=== PATIENT | male | born 1980 | race African-American/Black ===

== ENCOUNTER 2020-06-29 17:08 | Emergency (ER) | payer OTHER, SELFPAY ==
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
[2020-06-29 17:28] VITALS: BP 131/68; PULSE 84; RESP 16; TEMP 36.4; O2SAT 100
[2020-06-29] MEDS: KETOROLAC (*BKC) 60 MG/2 ML VIAL IM (18:51)
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
[2020-06-29 20:16] VITALS: BP 118/59; PULSE 69; RESP 16; O2SAT 98
== END 2020-06-29 20:17 | disposition home or self-care (01) ==
PROVIDERS: Emergency Provider Emergency Medicine; PCP Emergency Medicine
DX: S16.1XXA Strain of muscle, fascia and tendon at neck level, initial encounter (principal); V49.40XA Driver injured in collision with unspecified motor vehicles in traffic accident, initial encounter
CPT/HCPCS: 72125; 72128; 96372; 99284; J1885

== ENCOUNTER 2020-09-13 18:25 | Emergency (ER) | payer OTHER, SELFPAY ==
--- NOTE | 2020-09-13 18:28 | ED.GENADULT ---
HPI - General Adult General Chief complaint: Unspecified Stated complaint: Hemorrhoids Time Seen by Provider: 09/13/20 18:44 Source: patient and RN notes reviewed Mode of arrival: ambulatory Limitations: no limitations History of Present Illness HPI narrative: 40-year-old male presents with concern for rectal pain. Reports 6 days ago he ate a hot pepper and later had rectal pain. Reports rectal pain with bowel movements and in between bowel movements. Denies any palpable hemorrhoids, bleeding. Denies constipation, straining. Denies any issue of rectal problems, hemorrhoids in the past. Denies fever, constipation, diarrhea, nausea, vomiting, heartburn, changes in weight. MD complaint: Rectal pain Related Data Allergies Allergy/AdvReac Type Severity Reaction Status Date / Time amoxicillin Allergy Mild Itching Verified 08/08/18 00:19 Review of Systems Review of Systems: Narrative: CONSTITUTIONAL: Denies malaise, chills, sweats, or fever. CARDIOVASCULAR: Denies chest pain, palpitations RESPIRATORY: Denies cough or dyspnea. GASTROINTESTINAL: Denies abdominal pain, nausea, vomiting, diarrhea, bloody, or mucous stools. Reports rectal pain GENITOURINARY: Denies dysuria or hematuria. SKIN: Denies hemorrhoids MUSCULOSKELETAL: Denies back pain or myalgia. All systems reviewed & are unremarkable except as noted in HPI and below PMFSH Past Medical History Medical History (Updated 09/13/20 @ 18:51 by Sandi Tang NP) No active medical problems Social History Social History (Updated 06/29/20 @ 20:04 by Reyna Johnson PA-C) Substance use: current Substance use type: marijuana Comments At time of signature, agree with nursing past medical, surgical, social and family history. There is no relevant family history pertinent to the presenting complaint Exam Narrative: Exam Narrative: GENERAL: Well-appearing, well-nourished, and in no acute distress. HEAD: Normocephalic EYES: PERRLA, conjunctivae clear ENT: Mucous membranes moist. NECK: Supple. CHEST: No respiratory distress. Speaks in full sentences. HEART: Regular rate and rhythm SKIN: Warm, dry, no rash. NEURO: Alert and oriented x3. PSYCH: Normal mood and affect GI: Rectal Exam: visual inspection normal and normal sphincter tone Other: No palpable hemorrhoids, pain with digital exam Course Course Emergency Course: Patient is aware of diagnosis, understands and agrees to treatment plan. Anticipatory guidance given. Patient agrees to follow-up as directed and is aware of reasons to seek care at the emergency department. Portions of this record may have been created with voice recognition software Vital Signs Vital signs: Vital Signs Temperature 97.3 F L 09/13/20 18:35 Pulse Rate 80 09/13/20 18:35 Respiratory Rate 16 09/13/20 18:35 Blood Pressure 147/95 H 09/13/20 18:35 Pulse Oximetry 100 09/13/20 18:35 Temperature 97.3 F L 09/13/20 18:35 Pulse Rate 80 09/13/20 18:35 Respiratory Rate 16 09/13/20 18:35 Blood Pressure 147/95 H 09/13/20 18:35 Pulse Oximetry 100 09/13/20 18:35 Reviewed. Pt has been instructed to follow up with his primary care provider within the next week regarding his elevated blood pressure today. Medical Decision Making MDM Narrative Medical decision making narrative: Exam findings show no acute concerns or changes; patient is non-toxic appearing and is in no distress. Patient is appropriate for outpatient treatment and follow-up. Vital Signs Vital Signs: Vital Signs Temperature 97.3 F L 09/13/20 18:35 Pulse Rate 80 09/13/20 18:35 Respiratory Rate 16 09/13/20 18:35 Blood Pressure 147/95 H 09/13/20 18:35 Pulse Oximetry 100 09/13/20 18:35 Temperature 97.3 F L 09/13/20 18:35 Pulse Rate 80 09/13/20 18:35 Respiratory Rate 16 09/13/20 18:35 Blood Pressure 147/95 H 09/13/20 18:35 Pulse Oximetry 100 09/13/20 18:35 Critical Care Time Critical Care Time Critical Care
[2020-09-13 18:35] VITALS: BP 147/95; PULSE 80; RESP 16; TEMP 36.3; O2SAT 100
--- NOTE | 2020-09-13 18:52 | PC.NURSE ---
roofing tile sorter did manual rectal exam with rn at bedside.
== END 2020-09-13 18:58 | disposition home or self-care (01) ==
PROVIDERS: Emergency Provider Nurse Practitioner; PCP Emergency Medicine
DX: K62.89 Other specified diseases of anus and rectum (principal)
CPT/HCPCS: 99213; G0463

== ENCOUNTER 2020-09-16 11:33 | Emergency (ER) | payer OTHER, SELFPAY ==
--- NOTE | ~2020-09-16 | CT_ITS ---
EXAMINATION: CT abdomen pelvis w con DATE: 09/16/2020 14:09 INDICATION: Rectal pain. Constipation. TECHNIQUE: Computed tomography (CT) of the abdomen and pelvis was performed with 100 mL Omnipaque 350 intravenous contrast. Automated exposure control and iterative reconstruction technique were employe d. The dose-length product was 457.26 mGy-cm. COMPARISON: Chest CT 07/06/2017 FINDINGS: The visualized portions of the lung bases demonstrate multiple scattered pulmonary nodules measuring up to 9 mm in left lower lobe. Most of the nodules are improved from 08/06/2017. There is mi ld atelectasis bilaterally. No pleural effusion. The heart size is normal. No pericardial effusion. T here are 2 cysts in the liver measuring up to 5 mm. The gallbladder, pancreas, adrenal glands, and ki dneys are normal. There are no dilated loops of bowel. The appendix is normal. There are no pathologi charles enlarged lymph nodes. There is no free intraperitoneal fluid. There is a small right inguinal h ernia containing fat. There is mild lumbar spondylosis. IMPRESSION: 1. Small right inguinal hernia containing fat. 2. Pulmonary nodules with improvement from 08/06/2017, likely granulomatous disease. Reviewed, dictated and finalized at location A. DRAFTSMAN IMPRESSION: 1. Small right inguinal hernia containing fat. 2. Pulmonary nodules with improvement from 08/06/2017, likely granulomatous dise ase.
[2020-09-16 11:35] VITALS: PULSE 104; RESP 20; TEMP 36.8; O2SAT 100
--- NOTE | 2020-09-16 12:07 | ED.GENADULT ---
HPI - General Adult General Chief complaint: Unspecified Stated complaint: constipation Time Seen by Provider: 09/16/20 11:40 Source: patient Mode of arrival: EMS Limitations: no limitations History of Present Illness HPI narrative: This patient is a 40 year old male who presents for evaluation of rectal pain. He states 4 days ago he had a bowel movement and he developed rectal pain afterwards. He was evaluated at [facility] for this pain and he was prescribed hemorrhoid cream. He reports he continues to have severe rectal pain. He also reports lower abdominal pain. He has not had a bowel movement in 4 days. He denies fever, chills, nausea or vomiting. He also denies rectal bleeding. Related Data Allergies Allergy/AdvReac Type Severity Reaction Status Date / Time amoxicillin Allergy Mild Itching Verified 09/16/20 11:37 Review of Systems Review of Systems: All systems reviewed & are unremarkable except as noted in HPI and below PMFSH Past Medical History Medical History (Updated 09/16/20 @ 15:34 by Jossy Adame MD) No active medical problems Surgical History Surgical History (Updated 09/16/20 @ 13:35 by Jossy Adame MD) No pertinent past surgical history Social History Social History (Updated 06/29/20 @ 20:04 by Reyna Johnson PA-C) Substance use: current Substance use type: marijuana Gender identity (if verbalized by the patient): Male Exam Narrative: Exam Narrative: GENERAL: patient is diaphoretic and restless in bed due to pain HEAD: Normocephalic, atraumatic EYES: PERRLA and EOMI, conjunctiva clear without discharge THROAT:Mucous membranes moist, Oropharynx normal without erythema, exudate, peritonsillar swelling or fluctuance NECK: Supple, without lymphadenopathy or mass RESPIRATORY: No respiratory distress, Airway patent, Respirations non-labored, Clear to auscultation without rales, rhonchi or wheeze HEART: Regular rate and rhythm. No murmur heard. Normal peripheral pulses. ABDOMEN: Soft, nontender, nondistended, normal active bowel sounds. No masses. No rebound or guarding, No organomegaly. EXTREMITIES: No edema, normal strength with full range of motion. SKIN: Warm, dry, normal color without rash NEURO: Alert and oriented x3. CN 2-12 grossly intact. No focal deficits. PSYCH: Normal mood and affect. GI: Other: dark blood on digital exam. Patient unable to fully tolerate. Course Reevaluation(s) Reevaluation #1: I discussed with patient CT did not show anything. He reports he feels better. He likely has hemorrhoid. I discussed discharge plan with rectal cream and suppositories. He will continue stool softeners. Date: 09/16/20 Time: 15:30 Vital Signs Vital signs: Vital Signs Temperature 98.2 F 09/16/20 11:35 Pulse Rate 104 H 09/16/20 11:35 Respiratory Rate 20 09/16/20 11:35 Pulse Oximetry 100 09/16/20 11:35 Temperature 98.2 F 09/16/20 11:35 Pulse Rate 78 09/16/20 15:41 Respiratory Rate 16 09/16/20 15:41 Blood Pressure 132/58 L 09/16/20 15:41 Pulse Oximetry 99 09/16/20 15:41 Medical Decision Making Vital Signs Vital Signs: Vital Signs Temperature 98.2 F 09/16/20 11:35 Pulse Rate 104 H 09/16/20 11:35 Respiratory Rate 20 09/16/20 11:35 Pulse Oximetry 100 09/16/20 11:35 Temperature 98.2 F 09/16/20 11:35 Pulse Rate 78 09/16/20 15:41 Respiratory Rate 16 09/16/20 15:41 Blood Pressure 132/58 L 09/16/20 15:41 Pulse Oximetry 99 09/16/20 15:41 Lab Data Lab results reviewed: Yes I reviewed the patient's lab results. Result diagrams: 09/16/20 12:20 09/16/20 12:20 Labs: Lab Results 09/16/20 09/16/20 Range/Units 12:20 12:20 WBC 9.8 (4.5-10.0) K/mm3 RBC 5.38 (4.6-6.20) M/mm3 Hgb 16.8 (14.0-18.0) g/dL Hct 48.7 (42.0-52.0) % MCV 90.5 (80-100) fl MCH 31.2 (26-34) pg MCHC 34.5 (32-36) g/dl RDW 12.3 (11.5-14.5)
[2020-09-16] MEDS: ONDANSETRON INJ 4 MG/2 ML VIAL IV PUSH (12:26)
[2020-09-16] MEDS: SODIUM CHLORIDE 0.9% IV 1,000 ML 999 ML IV CONT (12:26)
[2020-09-16] MEDS: HYDROmorphone HCL INJ (*CRX) 1 MG/ML SYR IV PUSH (12:26)
[2020-09-16 12:27] LABS: Basophils Percent Auto 0.2 % (0.2-1.2); Eosinophils Absolute Auto 0.2 K/mm3 (0-0.3); Eosinophils Percent Auto 1.6 % (0-4.4); Hematocrit 48.7 % (42.0-52.0); Hemoglobin 16.8 g/dL (14.0-18.0); Immature Granulocyte Absolute 0.03 K/mm3 (0.00-0.031); Immature Granulocyte Percent A 0.3 % (0-0.5); Lymphocytes Absolute Auto 1.69 K/mm3 (0.9-3.2); Lymphocytes Percent Auto 17.3 % (18.3-44.2); Mean Corpuscular HGB Conc 34.5 g/dl (32-36); Mean Corpuscular Hemoglobin 31.2 pg (26-34); Mean Corpuscular Volume 90.5 fl (80-100); Mean Platelet Volume 10.2 fl (7.4-10.4); Monocytes Absolute Auto 1.2 K/mm3 (0.1-0.6); Monocytes Percent Auto 11.9 % (2.6-8.5); Neutrophils Absolute Auto 6.7 K/mm3 (1.3-6.7); Neutrophils Percent Auto 68.7 % (45.5-73.1); Platelet Count Result 213 k/mm3 (150-375); Red Blood Count 5.38 M/mm3 (4.6-6.20); Red Cell Distribution Width 12.3 % (11.5-14.5); White Blood Count 9.8 K/mm3 (4.5-10.0)
[2020-09-16 12:46] LABS: Alanine Aminotransferase 47 U/L (4-50); Albumin Level 4.7 g/dL (3.5-5.1); Alkaline Phosphatase 80 U/L (38-126); Anion Gap 10 mmol/L (8-16); Aspartate Amino Transferase 55 U/L (17-59); Bilirubin,Total 0.8 mg/dL (0.2-1.3); Blood Urea Nitrogen 11 mg/dL (9-20); Calcium 9.7 mg/dL (8.4-10.2); Carbon Dioxide 31 mmol/L (22-30); Chloride 98 mmol/L (98-107); Estimated CRCL calculation 79 ml/min; Estimated Glomerular Filt Rate > 60; Glucose 107 mg/dL (75-110); Potassium 3.6 mmol/L (3.4-5.0); Sodium 139 mmol/L (137-145)
[2020-09-16 15:41] VITALS: BP 132/58; PULSE 78; RESP 16; O2SAT 99
== END 2020-09-16 15:57 | disposition home or self-care (01) ==
PROVIDERS: Emergency Provider General Practice; PCP Emergency Medicine
DX: K62.89 Other specified diseases of anus and rectum (principal); K40.90 Unilateral inguinal hernia, without obstruction or gangrene, not specified as recurrent; R91.1 Solitary pulmonary nodule
CPT/HCPCS: 36415; 74177; 80053; 85025; 96361; 96374; 96375; 99284; J1170; J2405; J7030; Q9967

== ENCOUNTER 2020-09-19 04:36 | Emergency (ER) | payer OTHER, SELFPAY ==
[2020-09-19 04:39] VITALS: BP 158/97; PULSE 113; RESP 22; TEMP 36.9; O2SAT 99
--- NOTE | 2020-09-19 04:52 | ED.GENADULT ---
HPI - General Adult General Chief complaint: Unspecified Stated complaint: rectal pain Time Seen by Provider: 09/19/20 04:45 History of Present Illness HPI narrative: Patient is a 40-year-old gentleman who presents emerged part with chief complaint of rectal pain. The patient reports has been seen several times in the emergency department for hemorrhoids and reports that he is still having pain in his rectal area. Patient reports he is to see GI for evaluation of his hemorrhoids in the next 24 hours. Patient states that he is attempted to use the creams and has also tried sitz bath and stool softeners without relief. He reports that he had blood in his bowel movement whenever he is strained. Related Data Allergies Allergy/AdvReac Type Severity Reaction Status Date / Time amoxicillin Allergy Mild Itching Verified 09/16/20 11:37 Review of Systems Review of Systems: Narrative: A 10 system review of systems was completed on the patient and is negative except for what is stated in the HPI. Nursing and ancillary documentation was reviewed. [facility] Past Medical History Medical History No active medical problems Surgical History Surgical History (Updated 09/16/20 @ 13:35 by Jossy Adame MD) No pertinent past surgical history Social History Social History Substance use: current Substance use type: marijuana Gender identity (if verbalized by the patient): Male Comments Past medical history significant for hemorrhoids Exam Narrative: Exam Narrative: GENERAL: Well-appearing, well-nourished, and in no acute distress. HEAD: Normocephalic, atraumatic. EYES: PERRLA and EOMI. ENT: Nares clear, no rhinorrhea or epistaxis. Mucous membranes moist. NECK: Supple. CHEST: Clear to auscultation. No respiratory distress. HEART: Regular rate and rhythm. No murmur heard. Normal peripheral pulses. ABDOMEN: Soft, nontender, nondistended, normal active bowel sounds. : Rectal area there is a hemorrhoid present at the 8 o'clock position it is nonthrombosed but it is tender to palpation EXTREMITIES: Normal range of motion. No edema. SKIN: Warm, dry, no rash. NEURO: No focal deficits. Alert and oriented x3. PSYCH: Normal mood and affect. Course Vital Signs Vital signs: Vital Signs Temperature 36.9 C 09/19/20 04:39 Pulse Rate 113 H 09/19/20 04:39 Respiratory Rate 22 H 09/19/20 04:39 Blood Pressure 158/97 H 09/19/20 04:39 Pulse Oximetry 99 09/19/20 04:39 Temperature 36.9 C 09/19/20 04:39 Pulse Rate 113 H 09/19/20 04:39 Respiratory Rate 22 H 09/19/20 04:39 Blood Pressure 158/97 H 09/19/20 04:39 Pulse Oximetry 99 09/19/20 04:39 Medical Decision Making Vital Signs Vital Signs: Vital Signs Temperature 36.9 C 09/19/20 04:39 Pulse Rate 113 H 09/19/20 04:39 Respiratory Rate 22 H 09/19/20 04:39 Blood Pressure 158/97 H 09/19/20 04:39 Pulse Oximetry 99 09/19/20 04:39 Temperature 36.9 C 09/19/20 04:39 Pulse Rate 113 H 09/19/20 04:39 Respiratory Rate 22 H 09/19/20 04:39 Blood Pressure 158/97 H 09/19/20 04:39 Pulse Oximetry 99 09/19/20 04:39 Discharge Plan Discharge Clinical Impression: Hemorrhoid Qualifiers: Hemorrhoid type: unspecified Qualified Code(s): K64.9 - Unspecified hemorrhoids Patient Disposition: Home, Self-Care Condition: Stable Instructions: Antibiotic Form, Hemorrhoids (ED) Prescriptions: New hydrocodone-acetaminophen [Marmarth] 5-325 mg tablet 1 tablet PO Q8H PRN (Reason: pain) 3 Days Qty: 9 RF: 0 No Action docusate sodium [Colace] 100 mg capsule 100 mg PO BID Qty: 14 RF: 0 hydrocortisone [Proctosol HC] 2.5 % cream with perineal applicator 1 applic AK DAILY Qty: 30 RF: 0 ewhgjxzes-utvzvmirerbnxt-zmca 3-2.5 % (7 gram) kit 1 applic AK Q12H PRN (Reason: pain) Qty: 10 RF: 0 Follow
[2020-09-19] MEDS: HYDROcodone/acetaminophen (*CRX) 5-325 MG TABLET 1 TAB PO (05:02)
[2020-09-19] MEDS: LIDOCAINE HCL 2% JELLY 30 ML TUBE 1 APPLIC MUCOUS MEM (05:20)
== END 2020-09-19 05:30 | disposition home or self-care (01) ==
LOC: ANHED 04:56
PROVIDERS: Emergency Provider Emergency Medicine; PCP Emergency Medicine
DX: K62.89 Other specified diseases of anus and rectum (principal); K64.9 Unspecified hemorrhoids
CPT/HCPCS: 99283; A9270

== ENCOUNTER → 2021-01-16 03:37 | Outpatient (CLI) | payer OTHER, SELFPAY ==
[2021-01-16 20:31] LABS: SARS-CoV-2 RNA PCR Negative
== END ==
PROVIDERS: PCP Emergency Medicine; Visit Provider Internal Medicine Gastroenterology
DX: Z01.812 Encounter for preprocedural laboratory examination (principal); Z20.822 Contact with and (suspected) exposure to COVID-19
CPT/HCPCS: C9803; U0003; U0005

== ENCOUNTER → 2021-12-21 02:38 | Outpatient (CLI) | payer OTHER, SELFPAY ==
[2021-12-21 11:43] LABS: SARS-CoV-2 RNA PCR Negative
== END ==
PROVIDERS: PCP Emergency Medicine; Visit Provider Emergency Medicine
DX: R68.89 Other general symptoms and signs (principal); Z20.822 Contact with and (suspected) exposure to COVID-19
CPT/HCPCS: C9803; U0003; U0005

== ENCOUNTER 2022-02-21 12:16 | Outpatient (CLI) | payer OTHER, SELFPAY ==
--- NOTE | ~2022-02-21 | XR_ITS ---
EXAMINATION: XR hip RT 2V w AP pelvis DATE: 02/21/2022 12:49 INDICATION: Right groin pain TECHNIQUE: Anteroposterior view of the pelvis and anteroposterior and frog-leg lateral views of the a ffected hip were obtained. COMPARISON: None. FINDINGS: Bone alignment is normal. No fracture. Bilateral decreased femoral head/neck offset. No suspected marianela scular necrosis. Bilateral hip and sacroiliac joint spaces are normal. Visualized lower lumbar spine is unremarkable. Right pelvic heterotopic ossification. IMPRESSION: 1. Bilateral decreased femoral head/neck offset which could predispose towards cam-type femoral aceta bular impingement. Otherwise unremarkable pelvic and right hip radiographs. Reviewed, dictated and finalized at location B. IMPRESSION: 1. Bilateral decreased femoral head/neck offset which could predispose towards cam-type femoral acetabular impingement. Otherwise unremarkable pelvic and righ t hip radiographs.
== END 2022-02-21 12:17 | disposition home or self-care (01) ==
LOC: ANHIMG 12:23
PROVIDERS: PCP Emergency Medicine; Visit Provider Emergency Medicine
DX: M25.551 Pain in right hip (principal); R10.9 Unspecified abdominal pain
CPT/HCPCS: 73502

== ENCOUNTER 2022-05-08 09:24 | Outpatient (CLI) | payer OTHER, SELFPAY ==
--- NOTE | ~2022-05-08 | US_ITS ---
US abdomen limited INDICATION: Elevated liver enzymes PROCEDURE: Realtime right upper abdominal ultrasound. COMPARISON: No prior studies for comparison. FINDINGS: The pancreas is normal without focal mass or pancreatic ductal dilation. Echotexture is in creased, consistent with fatty infiltration. There is normal directional flow in the portal vein. The gallbladder is normal without stones, gallbladder wall thickening or pericholecystic fluid. Comm on bile duct measures 4.6 mm. No sonographic Jensen's sign. IMPRESSION: 1: Hepatic steatosis. Reviewed, dictated and finalized at location A. IMPRESSION: 1: Hepatic steatosis.
== END 2022-05-08 09:25 | disposition home or self-care (01) ==
PROVIDERS: PCP Emergency Medicine; Visit Provider Emergency Medicine
DX: R74.01 Elevation of levels of liver transaminase levels (principal); K76.0 Fatty (change of) liver, not elsewhere classified
CPT/HCPCS: 76705

== ENCOUNTER 2022-08-02 12:33 | Outpatient (CLI) | payer OTHER, SELFPAY ==
--- NOTE | ~2022-08-02 | XR_ITS ---
EXAMINATION: XR chest 2V 08/02/2022 12:49 INDICATION: Cough PROCEDURE: 2 view chest COMPARISON: 08/06/2017 FINDINGS: The lungs are clear. The cardiomediastinal silhouette is within normal limits. There are no pleural effusions. There is no pneumothorax suspected. IMPRESSION: 1: NO ACUTE CARDIOPULMONARY DISEASE. Reviewed, dictated and finalized at location A.
== END 2022-08-02 12:34 | disposition home or self-care (01) ==
PROVIDERS: PCP Emergency Medicine; Visit Provider Emergency Medicine
DX: R05.9 Cough, unspecified (principal)
CPT/HCPCS: 71046